=== PATIENT | male | born 1995 | race Caucasian/White ===

== ENCOUNTER 2017-12-29 14:12 | Outpatient (CLI) | payer OTHER ==
[~2017-12-29 14:12] MED LIST: DICLOFENAC POTA50 MG PO; FLEXERIL10 MG PO
== END 2017-12-29 14:19 | disposition home or self-care (01) ==
LOC: EKG 14:12
DX: F41.9 Anxiety disorder, unspecified (principal)

== ENCOUNTER 2017-12-29 14:12 | Outpatient (CLI) | payer OTHER | END 2017-12-29 15:40 | disposition home or self-care (01) | LOC: SONOGRAMA 14:12 | DX: R19.8 Other specified symptoms and signs involving the digestive system and abdomen (principal); F41.9 Anxiety disorder, unspecified ==

== ENCOUNTER → 2018-01-26 | Outpatient (CLI) | payer OTHER | END | disposition home or self-care (01) | LOC: LAB 14:16 | DX: R07.0 Pain in throat (principal) ==

== ENCOUNTER → 2019-05-11 11:09 | Outpatient (CLI) | payer OTHER | END | disposition home or self-care (01) | LOC: LAB 11:09 | DX: Z11.3 Encounter for screening for infections with a predominantly sexual mode of transmission (principal); E78.49 Other hyperlipidemia; R42 Dizziness and giddiness; Z00.00 Encounter for general adult medical examination without abnormal findings; Z11.4 Encounter for screening for human immunodeficiency virus [HIV] ==

== ENCOUNTER 2019-05-18 10:57 | Outpatient (CLI) | payer OTHER | END 2019-05-18 11:03 | disposition home or self-care (01) | LOC: RAD 10:57 | DX: M54.89 Other dorsalgia (principal) ==

== ENCOUNTER 2022-07-05 12:15 | Outpatient (CLI) | payer OTHER | END 2022-07-05 12:30 | disposition home or self-care (01) | LOC: PPH VACUNA 12:15 | PROVIDERS: ATTEND Emergency Medicine Pediatric Emergency Medicine | DX: Z23 Encounter for immunization (principal) ==